=== PATIENT | female | born 1985 | race Caucasian/White ===

== ENCOUNTER 2017-12-28 11:54 | Inpatient (IN) | payer BC ==
[2017-12-28] MEDS ORDERED: Sodium Chloride 0.9% 2.5 ML Syringe FLUSH PRN (12:03)
[2017-12-28] MEDS ORDERED: Nalbuphine 10 MG/1 ML Vial IVPUSH PRN (12:03)
[2017-12-28] MEDS ORDERED: Water For Irrigation,Sterile 1,000 ML Container IRR PRN (12:03)
[2017-12-28] MEDS ORDERED: Methylergonovine 0.2 MG/1 ML Amp IM PRN ×2 (12:03→17:59)
[2017-12-28] MEDS ORDERED: Butorphanol 1 MG/ML SDV IVPUSH PRN (12:03)
[2017-12-28] MEDS ORDERED: Ampicillin 2 GM in Sodium Chloride 0.9% 100 ML IV ONE (12:03)
[2017-12-28] MEDS ORDERED: Carboprost Tromethamine 250 MCG/1 ML Amp IM PRN (12:03)
[2017-12-28] MEDS ORDERED: Tranexamic Acid 1,000 MG in Sodium Chloride 0.9% 100 ML IV PRN (12:03)
[2017-12-28] MEDS ORDERED: Lidocaine 1% 50 ML MDV INJECT PRN (12:03)
[2017-12-28] MEDS ORDERED: Misoprostol 200 MCG Tab PO PRN (12:03)
[2017-12-28] MEDS ORDERED: Sodium Chloride 0.9% 10 ML Syringe FLUSH PRN (12:03)
[2017-12-28] MEDS ORDERED: Oxytocin/0.9 % Sodium Chloride 30 UNIT/500 ML BAG IV SCH ×2 (12:15→13:00)
[2017-12-28] MEDS: Lactated Ringers 1,000 ML IV SCH ×2 (12:35→16:39)
[2017-12-28] MEDS ORDERED: Terbutaline 1 MG/ML SDV SUBCUT PRN (12:49)
[2017-12-28] MEDS ORDERED: Ampicillin 1 GM in Sodium Chloride 0.9% 50 ML IV SCH ×5 (14:15→16:30)
[2017-12-28] MEDS ORDERED: Ropivacaine 0.2% 2 MG/ML 20 ML SDV ONE (15:04)
--- NOTE | 2017-12-28 15:34 | PCM.PREANE ---
Preanesthetic Assessment - Procedure Proposed Procedure: labor epidural - Anesthesia/Transfusion/Family Hx Anesthesia History: Prior Anesthesia Without Reaction Family History of Anesthesia Reaction: No Transfusion History: No Prior Transfusion(s) - Review of Systems Other: Reports: None - Physical Assessment Height: 5 ft 5.5 in Weight: 82.1 kg ASA Class: 2 Mental Status: Alert & Oriented x3 Airway Class: Mallampati = 1 Dentition: Reports: Normal Dentition Thyro-Mental Finger Breadths: 3 Mouth Opening Finger Breadths: 3 ROM/Head Extension: Full - Lab Values: Laboratory Last Values WBC 10.87 K/uL (4.0-11.0) 12/28/17 12:18 RBC 4.29 M/uL (4.30-5.90) L 12/28/17 12:18 Hgb 13.0 g/dL (12.0-16.0) 12/28/17 12:18 Hct 38.3 % (36.0-46.0) 12/28/17 12:18 MCV 89.3 fL (80.0-98.0) 12/28/17 12:18 MCH 30.3 pg (27.0-32.0) 12/28/17 12:18 MCHC 33.9 g/dL (31.0-37.0) 12/28/17 12:18 RDW Std Deviation 43.0 fl (28.0-62.0) 12/28/17 12:18 RDW Coeff of Hero 13 % (11.0-15.0) 12/28/17 12:18 Plt Count 178 K/uL (150-400) 12/28/17 12:18 MPV 10.50 fL (7.40-12.00) 12/28/17 12:18 Nucleated RBC % 0.0 /100WBC 12/28/17 12:18 Nucleated RBCs # 0 K/uL 12/28/17 12:18 Blood Type A POSITIVE 12/28/17 12:18 Antibody Screen NEGATIVE 12/28/17 12:18 - Allergies Allergies/Adverse Reactions: Allergies Allergy/AdvReac Type Severity Reaction Status Date / Time No Known Allergies Allergy Verified 08/12/15 00:01 - Blood Blood Available: Yes Product(s) Available: PRBC - Acknowledgements Anesthesia Type Planned: Epidural Pt an Appropriate Candidate for the Planned Anesthesia: Yes Alternatives and Risks of Anesthesia Discussed w Pt/Guardian: Yes Pt/Guardian Understands and Agrees with Anesthesia Plan: Yes PreAnesthesia Questionnaire HEENT History: Reports: Impaired Vision, Sinusitis Cardiovascular History: Reports: None Respiratory History: Reports: None Gastrointestinal History: Reports: Hemorrhoids Genitourinary History: Reports: None [employer] M[employer] History: Reports: , Spontaneous , Therapeutic Musculoskeletal History: Reports: Fracture Neurological History: Reports: None Psychiatric History: Reports: Anxiety, Depression, Other (See Below) Other Psychiatric History: depression Endocrine/Metabolic History: Reports: None Hematologic History: Reports: None Immunologic History: Reports: None Oncologic (Cancer) History: Reports: None Dermatologic History: Reports: None - Infectious Disease History Infectious Disease History: Reports: Chicken Pox, Human Papilloma Virus (HPV), Mononucleosis - Past Surgical History HEENT Surgical History: Reports: None GI Surgical History: Reports: None Female Surgical History: Reports: D&C - SUBSTANCE USE Smoking Status *Q: Former Smoker Tobacco Use Within Last Twelve Months: Cigarettes Second Hand Smoke Exposure: No Recreational Drug Use History: No - CURRENT (IN HOUSE) MEDS Current Meds: Current Medications Butorphanol Tartrate (Stadol) 1 mg IVPUSH Q1H PRN PRN Reason: Pain Carboprost Tromethamine (Hemabate Ds) 250 mcg IM ASDIRECTED PRN PRN Reason: Post Hemorrhage Lactated Ringer's (Ringers, Lactated) 1,000 mls @ 150 mls/hr IV ASDIRECTED [facility] Last Admin: 12/28/17 12:35 Dose: 150 mls/hr Oxytocin/Sodium Chloride (Oxytocin 30 Unit/500 Ml-Ns) 30 unit in 500 mls @ 500 mls/hr IV TITRATE [facility] Tranexamic Acid 1,000 mg/ (Sodium Chloride) 110 mls @ 660 mls/hr IV ONETIME PRN PRN Reason: Bleeding Oxytocin/Sodium Chloride (Oxytocin 30 Unit/500 Ml-Ns) 30 unit in 500 mls @ 2 mls/hr IV TITRATE [facility]; Protocol Last Titration: 12/28/17 15:27 Dose: 12 munits/min, 12 mls/hr Ampicillin Sodium 1 gm/ Sodium (Chloride) 50 mls @ 100 mls/hr IV Q4H [facility] Lidocaine HCl (Xylocaine 1%) 50 ml INJECT ONETIME PRN PRN Reason: Laceration repair Methylergonovine Maleate (Methergine) 0.2 mg IM ASDIRECTED PRN PRN Reason: Post Hemorrhage Misoprostol (Cytotec) 200 mcg PO ONETIME PRN PRN Reason: Post Hemorrhage Nalbuphine HCl (Nubain) 10 mg IVPUSH Q1H PRN PRN Reason: Pain (severe 7-10) Sodium Chloride (Saline Flush) 10 ml FLUSH ASDIRECTED PRN PRN Reason: Keep Vein Open Sodium Chloride (Saline Flush) 2.5 ml FLUSH ASDIRECTED PRN PRN Reason: Keep Vein Open Sterile Water (Sterile Water For Irrigation) 1,000 ml IRR ASDIRECTED PRN PRN Reason: delivery Terbutaline Sulfate (Brethine) 0.25 mg SUBCUT ASDIRECTED PRN PRN Reason: Tacysystole Discontinued Medications Ampicillin Sodium 2 gm/ Sodium (Chloride) 100 mls @ 200 mls/hr IV ONETIME ONE Stop: 12/28/17 12:32 Last Admin: 12/28/17 12:35 Dose: 200 mls/hr Ampicillin Sodium 1 gm/ Sodium (Chloride) 50 mls @ 100 mls/hr IV Q4H [facility] Fentanyl/Bupivacaine HCl ([id number]-[id number]-Gz 2 Mcg/Ml-0.125%) Confirm Administered Dose 100 mls @ as directed EP .STK-MED ONE Stop: 12/28/17 15:05 Ropivacaine (Naropin 0.2%) Confirm Administered Dose 20 ml .ROUTE .STK-MED ONE Stop: 12/28/17 15:05
[2017-12-28] MEDS ORDERED: ePHEDrine 50 MG/ML SDV ONE (17:19)
--- NOTE | 2017-12-28 17:57 | PCM.DEL ---
L & D Note - General Info Date of Service: 12/28/17 Mother's Due Date: 01[birth year] - Delivery Note Labor: Induced by Oxytocin Delivery Outcome: Livebirth Infant Delivery Method: Spontaneous Vaginal Delivery-Single Presentation: Compound (PATRICK with right arm) Nuchal Cord: None Prep: Other Anesthesia Type: Epidural Amniotic Fluid Description: Bloody Episiotomy Type: None Laceration: Vaginal Suture type: Vicryl Suture size: 3-0 Placenta: Intact, Spontaneous Cord: 3 Vessels Resuscitation Needed: No : Suctioned Score 1 min: 8 Score 5 min: 9 Second Stage Interventions: Reports: Pushing, McRobert's Position Delivery Comments (Free Text/Narrative):: 3880 grams - General Info Date of Service: 12/28/17 - Patient Data Weight - Most Recent: 82.1 kg Lab Results Last 24 Hours: Laboratory Results - last 24 hr 12/28/17 12/28/17 Range/Units 12:18 12:18 WBC 10.87 (4.0-11.0) K/uL RBC 4.29 L (4.30-5.90) M/uL Hgb 13.0 (12.0-16.0) g/dL Hct 38.3 (36.0-46.0) % MCV 89.3 (80.0-98.0) fL MCH 30.3 (27.0-32.0) pg MCHC 33.9 (31.0-37.0) g/dL RDW Std Deviation 43.0 (28.0-62.0) fl RDW Coeff of Hero 13 (11.0-15.0) % Plt Count 178 (150-400) K/uL MPV 10.50 (7.40-12.00) fL Nucleated RBC % 0.0 /100WBC Nucleated RBCs # 0 K/uL Blood Type A POSITIVE Antibody Screen NEGATIVE Med Orders - Current: Current Medications Butorphanol Tartrate (Stadol) 1 mg IVPUSH Q1H PRN PRN Reason: Pain Carboprost Tromethamine (Hemabate Ds) 250 mcg IM ASDIRECTED PRN PRN Reason: Post Hemorrhage Lactated Ringer's (Ringers, Lactated) 1,000 mls @ 150 mls/hr IV ASDIRECTED [facility] Last Admin: 12/28/17 16:39 Dose: 999 mls/hr Oxytocin/Sodium Chloride (Oxytocin 30 Unit/500 Ml-Ns) 30 unit in 500 mls @ 500 mls/hr IV TITRATE [facility] Tranexamic Acid 1,000 mg/ (Sodium Chloride) 110 mls @ 660 mls/hr IV ONETIME PRN PRN Reason: Bleeding Oxytocin/Sodium Chloride (Oxytocin 30 Unit/500 Ml-Ns) 30 unit in 500 mls @ 2 mls/hr IV TITRATE [facility]; Protocol Last Titration: 12/28/17 16:36 Dose: 6 munits/min, 6 mls/hr Ampicillin Sodium 1 gm/ Sodium (Chloride) 50 mls @ 100 mls/hr IV Q4H [facility] Last Admin: 12/28/17 16:30 Dose: 100 mls/hr Lidocaine HCl (Xylocaine 1%) 50 ml INJECT ONETIME PRN PRN Reason: Laceration repair Methylergonovine Maleate (Methergine) 0.2 mg IM ASDIRECTED PRN PRN Reason: Post Hemorrhage Misoprostol (Cytotec) 200 mcg PO ONETIME PRN PRN Reason: Post Hemorrhage Nalbuphine HCl (Nubain) 10 mg IVPUSH Q1H PRN PRN Reason: Pain (severe 7-10) Sodium Chloride (Saline Flush) 10 ml FLUSH ASDIRECTED PRN PRN Reason: Keep Vein Open Sodium Chloride (Saline Flush) 2.5 ml FLUSH ASDIRECTED PRN PRN Reason: Keep Vein Open Sterile Water (Sterile Water For Irrigation) 1,000 ml IRR ASDIRECTED PRN PRN Reason: delivery Terbutaline Sulfate (Brethine) 0.25 mg SUBCUT ASDIRECTED PRN PRN Reason: Tacysystole Discontinued Medications Ephedrine Sulfate (Ephedrine Sulfate) Confirm Administered Dose 50 mg .ROUTE .STK-MED ONE Stop: 12/28/17 17:20 Ampicillin Sodium 2 gm/ Sodium (Chloride) 100 mls @ 200 mls/hr IV ONETIME ONE Stop: 12/28/17 12:32 Last Admin: 12/28/17 12:35 Dose: 200 mls/hr Ampicillin Sodium 1 gm/ Sodium (Chloride) 50 mls @ 100 mls/hr IV Q4H [facility] Fentanyl/Bupivacaine HCl (Avzqntpz-Kjwme-Dl 2 Mcg/Ml-0.125%) Confirm Administered Dose 100 mls @ as directed EP .STK-MED ONE Stop: 12/28/17 15:05 Ropivacaine (Naropin 0.2%) Confirm Administered Dose 20 ml .ROUTE .STK-MED ONE Stop: 12/28/17 15:05 - Problem List & Annotations (1) Polyhydramnios, delivered SNOMED Code(s): 948738664 Code(s): O40.9XX0 - POLYHYDRAMNIOS, UNSP TRIMESTER, NOT APPLICABLE OR UNSP Status: Acute Current Visit: Yes - Problem List Review Problem List Initiated/Reviewed/Updated: Yes - My Orders Last 24 Hours: My Active Orders 12/28/17 12:03 Patient Status [ADT] Routine Heart Tones [RC] CONTINUOUS Non Stress Test [RC] PER UNIT ROUTINE May Shower [RC] ASDIRECTED Notify Provider [RC] PRN Up ad Kathrin [RC] ASDIRECTED Vaginal Exam [RC] PRN Vital Signs [RC] PER UNIT ROUTINE Butorphanol [Stadol] 1 mg IVPUSH Q1H PRN Carboprost Tromethamine [Hemabate DS] 250 mcg IM ASDIRECTED PRN Lidocaine 1% [Xylocaine 1%] 50 ml INJECT ONETIME PRN Methylergonovine [Methergine] 0.2 mg IM ASDIRECTED PRN Nalbuphine [Nubain] 10 mg IVPUSH Q1H PRN Sodium Chloride 0.9% [Saline Flush] 10 ml FLUSH ASDIRECTED PRN Sodium Chloride 0.9% [Saline Flush] 2.5 ml FLUSH ASDIRECTED PRN Tranexamic Acid [Cyklokapron] 1,000 mg Sodium Chloride 0.9% [Normal Saline] 100 ml IV ONETIME Water For Irrigation,Sterile [Sterile Water for Irrigation] 1,000 ml IRR ASDIRECTED PRN miSOPROStol [Cytotec] 200 mcg PO ONETIME PRN Scalp Electrode [WOMSER] Per Unit Routine Peripheral IV Insertion Adult [OM.PC] Routine Resuscitation Status Routine 12/28/17 12:15 Lactated Ringers [Ringers, Lactated] 1,000 ml IV ASDIRECTED Oxytocin/0.9 % Sodium Chloride [Oxytocin 30 Unit/500 ML-NS] 30 unit in 500 ml IV TITRATE 12/28/17 12:49 Bedrest Bathroom Privileges [RC] ASDIRECTED Communication Order [RC] ASDIRECTED Communication Order [RC] ASDIRECTED Notify Provider [RC] PRN Notify Provider [RC] STAT Oxygen Therapy [RC] ASDIRECTED Vaginal Exam [RC] PRN Vital Signs [RC] PER UNIT ROUTINE Terbutaline [Brethine] 0.25 mg SUBCUT ASDIRECTED PRN 12/28/17 13:00 Oxytocin/0.9 % Sodium Chloride [Oxytocin 30 Unit/500 ML-NS] 30 unit in 500 ml IV TITRATE Medication Administration Instruction [OM.PC] Q3H 12/28/17 16:30 Ampicillin 1 gm Sodium Chloride 0.9% [Normal Saline] 50 ml IV Q4H 12/28/17 Dinner Clear Liquid Diet [DIET]
[2017-12-28] MEDS ORDERED: Benzocaine/Menthol 20%-0.5% Spray 78 GM Cannister TOP PRN (17:59)
[2017-12-28] MEDS ORDERED: Ibuprofen 400 MG Tab PO PRN (17:59)
[2017-12-28] MEDS ORDERED: Lanolin 100% Cream 7 GM Tube TOP PRN (17:59)
[2017-12-28] MEDS ORDERED: oxyCODONE 5 MG Tab PO PRN (17:59)
[2017-12-28] MEDS ORDERED: Ibuprofen 800 MG Tab PO PRN (17:59)
[2017-12-28] MEDS ORDERED: Acetaminophen 500 MG Tab PO PRN ×2 (17:59)
[2017-12-28] MEDS ORDERED: Witch Hazel Medicated Pads 40/Jar TOP PRN (17:59)
[2017-12-28] MEDS ORDERED: Docusate Sodium 100 MG Cap PO PRN (17:59)
[2017-12-28] MEDS ORDERED: Bisacodyl 10 MG Supp RECTAL PRN (17:59)
--- NOTE | 2017-12-28 22:58 | PCM48HPAN ---
Post Anesthesia Note - EVALUATION WITHIN 48HRS OF ANESTHETIC Vital Signs in Normal Range: Yes Patient Participated in Evaluation: Yes Respiratory Function Stable: Yes Airway Patent: Yes Cardiovascular Function Stable: Yes Hydration Status Stable: Yes Pain Control Satisfactory: Yes Nausea and Vomiting Control Satisfactory: Yes Mental Status Recovered: Yes
--- NOTE | 2017-12-29 00:36 | OR ---
SURGEON: Yuliana Burger M.D. DATE OF PROCEDURE: 12/28/2017 PREOPERATIVE DIAGNOSIS: Thirty-nine week intrauterine , polyhydramnios. POSTOPERATIVE DIAGNOSIS: Thirty-nine week intrauterine , polyhydramnios. PROCEDURE: 1. Pitocin induction of labor, term spontaneous vaginal delivery. 2. Repair of vaginal laceration. ANESTHESIA: Epidural. ESTIMATED BLOOD LOSS: Less than 300 mL. FINDINGS: Live-born male, score 8 and 9, weighing 3880 g. Placenta spontaneous, Schultze intact with 3 vessels. Vaginal laceration repaired. COMPLICATIONS: None known. DISPOSITION: Mother and baby are in LDRP in good condition. BRIEF HISTORY: A 32-year-old female, she is G5, P2-0-2-2. She presents at 39 weeks' gestation. complicated by polyhydramnios followed with serial biophysical profiles. She presents for induction of labor. She was initially 3 cm, 70%, +4 station. Ultrasound was performed to confirm cephalic presentation. Pitocin was initiated. She had excellent response to Pitocin which was then discontinued due to hyperstimulation, and she received an epidural for pain control. She received 2 doses of ampicillin for group B Strep prophylaxis. After the second dose of ampicillin, she was 8 to 9 cm. She had just received bolus of the epidural, artificial rupture of membranes was performed. Clear fluid was noted and she began to push. DESCRIPTION OF PROCEDURE: With the patient in dorsal lithotomy position, the patient pushed over 3 contractions to a 5+ station, at which time the head was delivered spontaneously and atraumatically over the perineum with support with subsequent delivery of the 's shoulders and body without any difficulty. The right arm was delivered near the head and the posterior arm was delivered without any difficulty. The infant was bulb suctioned by nose and mouth. The cord was clamped x2 and cut after it had ceased to pulsate, and the was handed to the mother in the presence of the nurse attending delivery. The is a liveborn male, score 8 and 9, weighing 3880 g. Cord blood was collected for cord ABGs as well as routine cord blood sampling. Pitocin was initiated after delivery of the to assist with delivery. The placenta was delivered spontaneously. Schultze intact with 3 vessels. Upon inspection the pelvis and perineum, there were no periurethral, vaginal sidewall, cervical, rectal, or perineal lacerations. There was a vaginal laceration posteriorly that required a running lock suture of 3-0 Vicryl to reapproximate the vaginal mucosa and several deep sutures for complete hemostasis tied in a figure-of- eight fashion. A rectal exam was performed to confirm that no sutures had been placed into the rectum. Once hemostasis was confirmed, final sponge, needle, and instrument count were correct. Mother and baby are in LDRP in good condition. SUSIE / EMILE /[id number]
[2017-12-29] MEDS ORDERED: Measles, Mumps & Rubella Vaccine 0.5 ML SDV SUBCUT ONE (07:22)
[2017-12-29 16:33] VITALS: BP 108/79
== END 2017-12-29 20:05 | disposition home or self-care (01) | DRG 560 ==
LOC: MW.OBCHECK 11:54 → MW.OB 11:57 → MW.OBCHECK 13:01 → MW.OB 13:06 → OBSVTOIN 17:59 → MW.OB 22:05
PROVIDERS: ADMIT Obstetrics & Gynecology; ATTEND Obstetrics & Gynecology
PROC: 10E0XZZ Delivery of Products of Conception, External Approach (ICD-10-PCS; principal; 2017-12-28)
PROC: 0UQGXZZ Repair Vagina, External Approach (ICD-10-PCS; 2017-12-28)
PROC: 3E0S3BZ Introduction of Anesthetic Agent into Epidural Space, Percutaneous Approach (ICD-10-PCS; 2017-12-28)
PROC: 3E033VJ Introduction of Other Hormone into Peripheral Vein, Percutaneous Approach (ICD-10-PCS; 2017-12-28)
PROC: 10907ZC Drainage of Amniotic Fluid, Therapeutic from Products of Conception, Via Natural or Artificial Opening (ICD-10-PCS; 2017-12-28)
PROC: 3E0234Z Introduction of Serum, Toxoid and Vaccine into Muscle, Percutaneous Approach (ICD-10-PCS; 2017-12-29)
DX: O40.3XX0 Polyhydramnios, third trimester, not applicable or unspecified (principal); Z3A.39 39 weeks gestation of pregnancy; Z37.0 Single live birth; F41.9 Anxiety disorder, unspecified; F32.9 Major depressive disorder, single episode, unspecified; O71.4 Obstetric high vaginal laceration alone; O99.824 Streptococcus B carrier state complicating childbirth; Z87.891 Personal history of nicotine dependence; Z23 Encounter for immunization
CPT/HCPCS: 01967-QZ; 36415; 51701; 59025; 59409; 82803; 85014; 85018; 85027; 86850; 86900; 86901; 90471; 90707; A9270-GY; J0290; J2590; J2795; J7030; J7050; J7120

== ENCOUNTER 2019-03-24 05:31 | Emergency (ER) | payer BC ==
[2019-03-24] MEDS ORDERED: Diphtheria,Pertussis(Acell),Tetanus Vaccine 0.5 ML Syringe IM ONE (05:57)
[2019-03-24] MEDS ORDERED: Lidocaine 1% with EPINEPHrine 1:100,000 20 ML MDV INJECT ONE (06:03)
[2019-03-24] MEDS ORDERED: Bacitracin Oint 1 GM U/D Packet TOP ONE (06:03)
[2019-03-24] MEDS ORDERED: Sodium Chloride 0.9% 10 ML Syringe FLUSH PRN (06:04)
[2019-03-24] MEDS ORDERED: Sodium Chloride 0.9% 1,000 ML IV ONE (06:04)
[2019-03-24] MEDS ORDERED: Sodium Chloride 0.9% 2.5 ML Syringe FLUSH PRN (06:04)
[2019-03-24] MEDS ORDERED: Amoxicillin/Clavulanate K 875-125 MG Tab PO ONE (06:09)
--- NOTE | 2019-03-24 06:09 | EDM.PDOC ---
ED HPI GENERAL MEDICAL PROBLEM - General Chief Complaint: Laceration Stated Complaint: GASH IN LEFT LEG Time Seen by Provider: 03/24/19 05:57 - History of Present Illness INITIAL COMMENTS - FREE TEXT/NARRATIVE: HISTORY AND PHYSICAL: History of present illness: The patient is a 34-year-old female who is she up-to-date on her tetanus shot and presents after she was doing exercise this morning and was jumping up on a box when her foot caught the edge and she fell forward impacting and cutting her left dorsal aspect of her lower leg. She has no bony pain and did not pass out or black out and has no other injuries. She wasn't lightheaded from the wound and the stress of the events and on arrival here she was somewhat pale but was not having active bleeding from the wound. She has no other systemic complaints. She was able to ambulate into the ED and has no distal numbness tingling or weakness. She has no bony pain to her leg. Review of systems: As per history of present illness and below otherwise all systems reviewed and negative. Past medical history: As per history of present illness and as reviewed below otherwise noncontributory. Surgical history: As per history of present illness and as reviewed below otherwise noncontributory. Social history: No reported history of drug or alcohol abuse. Family history: As per history of present illness and as reviewed below otherwise noncontributory. Physical exam: General: Well-developed well-nourished female who initially on arrival was very pale but not diaphoretic and vital signs are noted by me. After she was placed supine and given some IV fluids her color is much improved as are her vital signs. HEENT: Atraumatic, normocephalic, negative for conjunctival pallor or scleral icterus, mucous membranes moist, throat clear, neck supple, nontender, trachea midline. Lungs: Clear to auscultation, breath sounds equal bilaterally, chest nontender. Heart: S1S2, regular rate and rhythm Abdomen: Soft, nondistended, nontender. Negative for masses or hepatosplenomegaly. NABS. Pelvis: Stable nontender. Genitourinary: Deferred. Rectal: Deferred. Extremities: Atraumatic full range of all extremities with the exception of the left tib-fib area where on the dorsal aspect of the soft tissue there is a 2 cm puncture laceration seen with surrounding abrasion and jagged and macerated in edges. I'm able to see the base and there are no foreign bodies appreciated. Neurovascular unremarkable. There are no palpable bony deformities of the tibia fibula and there are no other injury seen on the leg throughout. Neuro: Awake, alert, oriented. Cranial nerves II through XII unremarkable. Cerebellum unremarkable. Motor and sensory unremarkable throughout. Exam nonfocal. The patient can dorsi and plantar flex feet without deficit Diagnostics: [] Therapeutics: IV placement IV fluids lidocaine with epinephrine for suture placement bacitracin and dressing care per nursing, crutches Augmentin Procedure note: After the wound was cleansed by nursing I explained to the patient that I would try to reapproximate the skin edges loosely to better reapproximate things but that I could not completely close the wound as it is a puncture laceration and is higher risk for infection. The patient stated understanding and lidocaine with epinephrine was infused in a local fashion and the area was prepped and draped. Sutures were placed in a simple interrupted fashion for total number of # 4 sutures of 4-0 nylon. There were no complications and the patient tolerated the procedure well. Bacitracin and a dressing were applied. The patient was given crutches as this is a high stress area. Augmentin was given Impression: Puncture laceration of left lower leg Definitive disposition and diagnosis as appropriate pending reevaluation and review of above. 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: , 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 , 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 Musculoskeletal History: Reports: Fracture Neurological History: Reports: None Psychiatric History: Reports: Anxiety, Depression, Other (See Below) Other Psychiatric History: depression Endocrine/Metabolic History: Reports: None Hematologic History: Reports: None Immunologic History: Reports: None Oncologic (Cancer) History: Reports: None Dermatologic History: Reports: None - Infectious Disease History Infectious Disease History: Reports: Chicken Pox - Past Surgical History HEENT Surgical History: Reports: None GI Surgical History: Reports: None Female Surgical History: Reports: D&C Social & Family History - Family History HEENT: Reports: Hearing Impairment, Impaired Vision Cardiac: Reports: Blood Clots/VTE/DVT, Heart Failure, High Cholesterol, Hypertension, [place] Respiratory: Reports: Asthma GI: Reports: None : Reports: None OBGYN: Reports: Endometriosis, Musculoskeletal: Reports: Arthritis, Gout Neurological: Reports: CVA, Dementia Psychiatric: Reports: Anxiety Endocrine/Metabolic: Reports: None Hematologic: Reports: None Immunologic: Reports: None Dermatologic: Reports: None Oncologic: Reports: Breast, Leukemia, Prostate - Tobacco Use Smoking Status *Q: Former Smoker Used Tobacco, but Quit: Yes Month/Year Tobacco Last Used: 2012 - Caffeine Use Caffeine Use: Reports: Coffee - Recreational Drug Use Recreational Drug Use: No ED ROS GENERAL - Review of Systems Review Of Systems: ROS reveals no pertinent complaints other than HPI. ED EXAM, SKIN/RASH Exam: See Below (See dictation) Course - Vital Signs Last Recorded V/S: Last Vital Signs Temp 35.3 C 03/24/19 05:42 Pulse 55 L 03/24/19 05:42 Resp 18 03/24/19 05:42 BP 94/61 03/24/19 05:49 Pulse Ox 99 03/24/19 05:42 - Orders/Labs/Meds Orders: Active Orders 24 hr Category Date Time Status Vaccines to be Administered [RC] PER UNIT ROUTINE Care 03/24/19 05:57 Inactive Sodium Chloride 0.9% [Normal Saline] 1,000 ml Med 03/24/19 06:04 Ordered IV STAT Sodium Chloride 0.9% [Saline Flush] Med 03/24/19 06:04 Ordered 10 ml FLUSH ASDIRECTED PRN Sodium Chloride 0.9% [Saline Flush] Med 03/24/19 06:04 Ordered 2.5 ml FLUSH ASDIRECTED PRN DME for Discharge [COMM] Stat Oth 03/24/19 06:10 Ordered Saline Lock Insert [OM.PC] Stat Oth 03/24/19 06:04 Ordered Medication Orders Sodium Chloride (Normal Saline) 1,000 mls @ 999 mls/hr IV STAT ONE Stop: 03/24/19 07:04 Last Admin: 03/24/19 06:07 Dose: 999 mls/hr Sodium Chloride (Saline Flush) 10 ml FLUSH ASDIRECTED PRN PRN Reason: Keep Vein Open Sodium Chloride (Saline Flush) 2.5 ml FLUSH ASDIRECTED PRN PRN Reason: Keep Vein Open Meds: Medications Generic Name Dose Route Start Last Admin Trade Name Freq PRN Reason Stop Dose Admin Sodium Chloride 1,000 mls @ 999 mls/hr 03/24/19 06:04 03/24/19 06:07 Normal Saline IV 03/24/19 07:04 999 mls/hr STAT ONE Administration Sodium Chloride 10 ml 03/24/19 06:04 Saline Flush FLUSH ASDIRECTED PRN Keep Vein Open Sodium Chloride 2.5 ml 03/24/19 06:04 Saline Flush FLUSH ASDIRECTED PRN Keep Vein Open Discontinued Medications Generic Name Dose Route Start Last Admin Trade Name Freq PRN Reason Stop Dose Admin Amoxicillin/Clavulanate Potassium 1 tab 03/24/19 06:09 Augmentin 875 Mg/125 Mg PO 03/24/19 06:10 ONETIME ONE Bacitracin 1 dose 03/24/19 06:03 03/24/19 06:07 Bacitracin Oint 1 Gm TOP 03/24/19 06:04 1 dose ONETIME ONE Administration Diphtheria/Tetanus/Acell Pertussis 0.5 ml 03/24/19 05:57 Adacel IM 03/24/19 05:58 .ONCE ONE Lidocaine/Epinephrine 20 ml 03/24/19 06:03 03/24/19 06:08 Xylocaine 1% With Epinephrine 1:100,000 INJECT 03/24/19 06:04 20 ml ONETIME ONE Administration Departure - Departure Time of Disposition: 06:30 Disposition: Home, Self-Care 01 Condition: Good Clinical Impression: Puncture wound - injury Laceration of leg Qualifiers: Encounter type: initial encounter Laterality: left Qualified Code(s): S81.812A - Laceration without foreign body, left lower leg, initial encounter - Discharge Information Referrals: PCP,None [Primary Care Provider] - Forms: ED Department Discharge Additional Instructions: The following information is given to patients seen in the emergency department who are being discharged to home. This information is to outline your options for follow-up care. We provide all patients seen in our emergency department with a follow-up referral. The need for follow-up, as well as the timing and circumstances, are variable depending upon the specifics of your emergency department visit. If you don't have a primary care physician on staff, we will provide you with a referral. We always advise you to contact your personal physician following an emergency department visit to inform them of the circumstance of the visit and for follow-up with them and/or the need for any referrals to a consulting specialist. The emergency department will also refer you to a specialist when appropriate. This referral assures that you have the opportunity for followup care with a specialist. All of these measure are taken in an effort to provide you with optimal care, which includes your followup. Under all circumstances we always encourage you to contact your private physician who remains a resource for coordinating your care. When calling for followup care, please make the office aware that this follow-up is from your recent emergency room visit. If for any reason you are refused follow-up, please contact the [facility] emergency department at and ask to speak to the emergency department charge nurse. [facility] Primary care- [place] [id number] Leave the dressing that was placed on in the ED for the next 24 hours then remove and cleanse the area with mild soap and water pat dry and apply bacitracin or Neosporin. She cleanse the area at least twice a day. After the first 3 days stop the ointment. Allow the area to be open to air as much as possible and if you need to cover the area these use gauze or breathable dressing no Band-Aids. Sutures should be removed in 7-10 days here in the emergency department or with your provider in the clinic. Use crutches you have been given for the next 1-2 days to reduce the stress on the wound. Take Augmentin as prescribed as this is a puncture laceration. Return to ER as needed and as discussed - My Orders Last 24 Hours: My Active Orders 03/24/19 05:57 Vaccines to be Administered [RC] PER UNIT ROUTINE 03/24/19 06:04 Sodium Chloride 0.9% [Normal Saline] 1,000 ml IV STAT Sodium Chloride 0.9% [Saline Flush] 10 ml FLUSH ASDIRECTED PRN Sodium Chloride 0.9% [Saline Flush] 2.5 ml FLUSH ASDIRECTED PRN Saline Lock Insert [OM.PC] Stat 03/24/19 06:10 DME for Discharge [COMM] Stat - Assessment/Plan Last 24 Hours: My Active Orders 03/24/19 05:57 Vaccines to be Administered [RC] PER UNIT ROUTINE 03/24/19 06:04 Sodium Chloride 0.9% [Normal Saline] 1,000 ml IV STAT Sodium Chloride 0.9% [Saline Flush] 10 ml FLUSH ASDIRECTED PRN Sodium Chloride 0.9% [Saline Flush] 2.5 ml FLUSH ASDIRECTED PRN Saline Lock Insert [OM.PC] Stat 03/24/19 06:10 DME for Discharge [COMM] Stat
[2019-03-24 07:02] VITALS: BP 112/72; PULSE 69
== END 2019-03-24 06:41 | disposition home or self-care (01) ==
LOC: MW.ED 05:31
DX: S81.832A Puncture wound without foreign body, left lower leg, initial encounter (principal); S81.812A Laceration without foreign body, left lower leg, initial encounter; F41.9 Anxiety disorder, unspecified; F32.9 Major depressive disorder, single episode, unspecified; Z87.891 Personal history of nicotine dependence; W19.XXXA Unspecified fall, initial encounter; W22.8XXA Striking against or struck by other objects, initial encounter; Y93.39 Activity, other involving climbing, rappelling and jumping off
CPT/HCPCS: 12001; 96360; 99282; A9270; J7040; 99283

== ENCOUNTER 2019-04-02 08:22 | Emergency (ER) | payer BC ==
[2019-04-02 08:42] VITALS: BP 117/55; PULSE 74
== END 2019-04-02 08:43 | disposition home or self-care (01) ==
LOC: MW.ED 08:22
DX: Z53.21 Procedure and treatment not carried out due to patient leaving prior to being seen by health care provider (principal)